=== PATIENT | female | born 1965 | race Caucasian/White ===

== ENCOUNTER 2016-10-05 07:15 | Day surgery (SDC) | payer BC ==
--- NOTE | 2016-10-02 11:52 | PREOPHP ---
DATE OF ADMISSION: 10/05/2016 HISTORY OF PRESENT ILLNESS: This is a 50-year-old female, 2, para 2. The patient had been scheduled for a D and C, hysteroscopy, due to abnormal bleeding. She has a history of having heavy periods, and she has been having pelvic pain. She was diagnosed with a fibroid uterus. An ultrasound had also determined that she had endometrial hyperplasia. She has been advised for A D and C, hysteroscopy to rule out the possibility of submucosal fibroid. The patient has been on estradiol and paroxetine. PAST MEDICAL HISTORY: She has had a LEEP conization in 2017. She had a history of hot flashes, sweating, premenopause. She had a history of tubal ligation, fibroids, tonsillectomy, breast implants and DELL 2 of the cervix. ALLERGIES: NONE. MEDICATIONS: She is on no medications. FAMILY HISTORY: Diabetes. PHYSICAL EXAMINATION: GENERAL APPEARANCE: General appearance is good. VITAL SIGNS: Blood pressure of 100/60. Pulse is 80, respirations 16. She weighs 166. Height is 5 ft 8 inches. HEAD AND NECK: Normal. BREASTS: Soft, nontender. No masses. CHEST: Clear. HEART: Normal sinus rhythm. ABDOMEN: Soft, nontender. No masses. GENITALIA: Normal genitalia. The cervix is healthy. Uterus with fibroids. Adnexa negative. RECTAL: Normal. EXTREMITIES: Normal. DIAGNOSIS: 1. Perimenopausal syndrome. 2. Endometrial hyperplasia. 3. Abnormal uterine bleeding. 4. Fibroid uterus. 5. Previous conization of the cervix. 6. Cervix intraepithelial neoplasia-2. PLAN: She is undergoing a hysteroscopy and D and C. She has been advised of the possible risks and possible complications for the procedure with her alternatives and options. Written information was provided. She had no more questions, and agreed to go ahead with the procedure with full understanding and no more questions. Dictated By: Obdulia Johnson MD /ana rosa/ec /Document#: [id number]
[~2016-10-05] VITALS: Ht 172.7 cm; Wt 70.0 kg
[2016-10-05] VITALS (10 sets, daily range): BP systolic 88–119; BP diastolic 48–68; PULSE 63–82; RESP 14–22; Ht 172.7 cm; Wt 70.0 kg
[~2016-10-05 07:15] MED LIST: CEFAZOLIN 2 GM/50 ML (PMX) 50 ML IVPB SCH; DEXTROSE 5%-LR 1,000 ML IV SCH
--- NOTE | 2016-10-05 07:53 | HPN ---
Date/Time of Note Date/Time of Note DATE: 10/05/16 TIME: 07:53 Interval H&P Admission Note Pt. seen H&P reviewed: No system changes KYLE MINAYA MD Oct 05, 2016 07:53
[2016-10-05] MEDS ORDERED: ESTR1PAT88 PO (08:31)
[2016-10-05] MEDS ORDERED: LIDOCAINE 2% (SDV) 5 ML INJ ONE (09:26)
[2016-10-05] MEDS ORDERED: MEPERIDINE 100 MG INJ ONE (09:26)
[2016-10-05] MEDS ORDERED: CEFAZOLIN 1 GM INJ ONE (09:26)
[2016-10-05] MEDS ORDERED: PROPOFOL 20 ML ONE (09:26)
[2016-10-05] MEDS ORDERED: ONDANSETRON 4 MG INJ ONE (09:27)
[2016-10-05] MEDS ORDERED: METOCLOPRAMIDE 10 MG INJ ONE (09:27)
--- NOTE | 2016-10-05 10:19 | PD.PPDC ---
DIALS SUPERVISOR Discharge Instruction Condition Patient Condition: Good Diet Diet: Resume Regular Diet Activity/Restrictions Activity: Normal Activity May Shower Restrictions: No Exercising No Lifting No Driving No Sexual Activity Nothing in the Vagina No [place] No Tampons, douche Follow-up Follow-up with Physician: 2, Week/Weeks Return to clinic for LINEMAN Instructions: Fever greater than 101 Chills Worsening abdominal pain Excessive Vaginal Bleeding More than 2 pads per hour Unable to tolerate diet KYLE MINAYA MD Oct 05, 2016 10:19
--- NOTE | 2016-10-05 10:22 | OPR ---
Date/Time of Note Date/Time of Note DATE: 10/05/16 TIME: 10:20 Operative Report Procedure Date: Oct 05, 2016 Preoperative Diagnosis ABNORMAL UTERINE BLEEDING ENDOMETRIAL HYPERPLASIA FIBROID UTERUS PERIMENOPAUSE Postoperative Diagnosis SAME Surgeon: KYLE MINAYA MD Anesthesia: general Anesthesiologist: RAJWINDER ZENG MD Estimated Blood Loss: minimal Complications: None Pt Condition Post Procedure: stable Disposition: PACU KYLE MINAYA MD Oct 05, 2016 10:22
[2016-10-05] MEDS ORDERED: KETOROLAC 30 MG INJ IV PRN (10:30)
[2016-10-05] MEDS ORDERED: DIPHENHYDRAMINE 50 MG INJ IV PRN (11:00)
[2016-10-05] MEDS ORDERED: ONDANSETRON 4 MG INJ IV PRN (11:00)
[2016-10-05] MEDS ORDERED: FENTAnyl 50 MCG/ML VIAL IV PRN ×3 (11:00)
[2016-10-05] MEDS ORDERED: MIDAZOLAM 1 MG/ML 2 ML INJ IV PRN (11:00)
[2016-10-05] MEDS ORDERED: MEPERIDINE 25 MG INJ IV PRN (11:00)
[2016-10-05] MEDS ORDERED: OXYCODONE/ACETAMINOPHEN (5/325) TAB PO PRN ×2 (11:00)
[2016-10-05] MEDS ORDERED: HYDROmorphONE (0.2 MG/ML) 10ML SYG IV PRN ×3 (11:00)
[2016-10-05] MEDS ORDERED: METOCLOPRAMIDE 10 MG INJ IV PRN (11:00)
--- NOTE | 2016-10-05 11:59 | OPR ---
DATE OF OPERATION: 10/05/2016 OPERATION PERFORMED: Fractional dilation and curettage, and hysteroscopy. PREOPERATIVE DIAGNOSES: 1. Abnormal uterine bleeding. 2. Endometrial hyperplasia. 3. Fibroid uterus. 4. Perimenopause. POSTOPERATIVE DIAGNOSE: 1. Abnormal uterine bleeding. 2. Endometrial hyperplasia. 3. Fibroid uterus. 4. Perimenopause. ANESTHESIA: General anesthesia with Dr. Garay. OPERATIVE PROCEDURE: The patient was given general anesthesia, placed in the lithotomy position. The perineal vaginal area was prepped and draped. Confirmatory examination under anesthesia revealed that the uterus was normal size. There were signs on the cervix of previous conization and adnexa were nonpalpable. The endocervical curettage was done and the uterus was sounded to a depth of 6 cm and dilated to a 7 mm Hegar dilator and a hysteroscope was placed in. The media was inflated and visualization of the area did not see any intracavitary fibroid. There was a lot of tissue on the cavity though. the right tubal ostium was seen. The left tubal ostium was not seen as possibly with scar tissue. The hysteroscope was used to resect some of the endometrium and the area of hyperplastic tissue was excised. The procedure was finished by removing the hysteroscope and a sharp curettage of the lining of the anterior-posterior area of the uterus lateral and fundal was done and tissue was sent for histopathology. The patient tolerated the procedure well and left the OR awake and stable. Sponge counts and instrument counts were correct. Intravenous antibiotics were given for prophylaxis. Dictated By: Obdulia Johnson MD /ana rosa/donald /Document#: [id number]
--- NOTE | 2016-10-05 14:31 | RADRPT ---
Vent Rate: 64 bpm RR Interval: 0 msec [place] Interval: 128 msec QRS Duration: 100 msec QT Interval: 406 msec QTC Interval: 418 msec P-R-T [place]: -33 - 23 - 38 degrees Unusual P axis, possible ectopic atrial rhythm with premature atrial complexes Incomplete right bundle branch block Abnormal ECG Electronically Signed By: Braeden Jenkins [id number]
== END 2016-10-05 12:25 | disposition home or self-care (01) ==
LOC: SDS 07:15
PROVIDERS: ATTEND Obstetrics & Gynecology
DX: N93.9 Abnormal uterine and vaginal bleeding, unspecified (principal); Z78.0 Asymptomatic menopausal state
CPT/HCPCS: 58558; 88305; 93005; J0690; J2175; J2405; J2765; J7121